=== PATIENT | female | born 1995 | race Caucasian/White ===

== ENCOUNTER → 2016-11-05 | Outpatient (REF) | payer MEDICAID, OTHER ==
[~2016-11-05] MED LIST: ACET50TA PO; IBUP-1114 PO; PRENTAB55 PO
[2016-11-05 13:47] LABS: MEAN CORPUSCULAR HEMOGLOBIN 30.7 pg (27.0-33.0); MEAN CORPUSCULAR HGB CONC 35.5 g/dl (32.0-36.5); MEAN CORPUSCULAR VOLUME 86.6 fl (80.0-96.0); WHITE BLOOD COUNT 6.8 K/mm3 (4.0-10.0)
== END ==
LOC: M LAB REF 13:11
PROVIDERS: ATTEND Obstetrics & Gynecology
DX: Z34.83 Encounter for supervision of other normal pregnancy, third trimester (principal)